=== PATIENT | female | born 1970 | race Caucasian/White ===

== ENCOUNTER 2021-01-30 05:44 | Day surgery (SDC) | payer BC ==
[~2021-01-30] VITALS: Ht 172.7 cm; Wt 135.2 kg
[~2021-01-30 05:44] MED LIST: Calcium + Vita1 EACH PO
--- NOTE | 2021-01-30 09:48 | NUR ---
PT SAT AT 94% ON ROOM AIR
--- NOTE | 2021-01-30 10:38 | NUR ---
Discharge instructions reviewed with patient. Patient verbalizes understanding. Copy given to patient to take home.
--- NOTE | 2021-01-30 10:57 | NUR ---
Dressing to procedure site clean, dry, intact with no visible drainage, swelling, erythema or bruising noted. PT STATES NAUSEA HAS RESOLVED. Discharged via wheelchair to private car for ride home.
== END 2021-01-30 11:00 | disposition home or self-care (01) ==
LOC: ORSCMMR 05:44 → ORD 07:30 → ORSCMMR 07:30
PROVIDERS: Surgery
PROC: 0FT44ZZ Resection of Gallbladder, Percutaneous Endoscopic Approach (ICD-10-PCS; principal; 2021-01-30 07:30)
DX: K80.10 Calculus of gallbladder with chronic cholecystitis without obstruction (principal); K21.9 Gastro-esophageal reflux disease without esophagitis; E66.01 Morbid (severe) obesity due to excess calories; Z68.42 Body mass index [BMI] 45.0-49.9, adult
CPT/HCPCS: 88304; J0690; J1100; J1885; J2250; J2405; J2704; J2765; J3010; J7120

== ENCOUNTER 2024-09-01 07:33 | Day surgery (SDC) | payer BC ==
[~2024-09-01] VITALS: Ht 172.7 cm; Wt 135.0 kg
[~2024-09-01 07:33] MED LIST changes: +Lactated Ringer's 1,000 ML IV ONE
[2024-09-01] MEDS ORDERED: METFORMIN HCL500 M2 (08:05)
[2024-09-01] MEDS ORDERED: ATORVALIQ20 MG/5 ML (08:05)
[2024-09-01] MEDS ORDERED: OZEMPIC0.25 MG/02 (08:07)
[2024-09-01] MEDS ORDERED: LOSARTAN POTASS25 M2 (08:07)
[2024-09-01] MEDS ORDERED: ATOR10 (08:07)
[2024-09-01] MEDS ORDERED: ERGO400 (08:07)
[2024-09-01] MEDS ORDERED: Oxybutynin Chlor5 M1 (08:08)
[2024-09-01] MEDS ORDERED: propofoL 50 ML IV ONE (08:46)
[2024-09-01] MEDS ORDERED: Lactated Ringer's 1,000 ML IV ONE (09:01)
[2024-09-01 10:10] VITALS: BP 142/97
--- NOTE | 2024-09-01 10:10 | NUR ---
09/01/[address] AT BEDSIDE.
== END 2024-09-01 10:12 | disposition home or self-care (01) ==
LOC: ORSCSDS 07:33
PROVIDERS: Surgery
PROC: 0DBN8ZX Excision of Sigmoid Colon, Via Natural or Artificial Opening Endoscopic, Diagnostic (ICD-10-PCS; principal; 2024-09-01 09:15)
DX: Z12.11 Encounter for screening for malignant neoplasm of colon (principal); K63.5 Polyp of colon; K57.30 Diverticulosis of large intestine without perforation or abscess without bleeding; I10 Essential (primary) hypertension; E11.9 Type 2 diabetes mellitus without complications; G47.33 Obstructive sleep apnea (adult) (pediatric); Z79.84 Long term (current) use of oral hypoglycemic drugs; Z79.899 Other long term (current) drug therapy
CPT/HCPCS: 82947; 88305; J2704; J7120